=== PATIENT | male | born 1980 | race Caucasian/White ===

== ENCOUNTER 2018-01-17 09:36 | Emergency (ER) | payer MEDICARE, MEDICAID ==
[2018-01-17 09:45] VITALS: BP 116/76
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
== END 2018-01-17 10:25 | disposition home or self-care (01) ==
LOC: UCEAST 09:36
DX: R31.9 Hematuria, unspecified (principal); F98.8 Other specified behavioral and emotional disorders with onset usually occurring in childhood and adolescence; Z88.0 Allergy status to penicillin; Z88.8 Allergy status to other drugs, medicaments and biological substances
CPT/HCPCS: 81003; 87077; 87086; 99212; G0463

== ENCOUNTER 2019-06-20 22:00 | Emergency (ER) | payer MEDICARE, MEDICAID ==
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
--- OUTSIDE RECORDS SUMMARY | 2019-06-20 22:39 | XMS REPORT | Continuity of Care Document ---
:1980 Author Organization 0001 [facility] Address [address] [place] [address] Phone Care Team Providers Name Role Phone RUSSELL DOWELL MD Unavailable Unavailable Allergies, Adverse Reactions, Alerts Substance Reaction Status lamotrigine Vomiting Active Penicillins Other Active Medications Medication Instructions Dosage Effective Dates Status Comments (start - stop) Differin 0.1 % apply by topical - Active topical gel route every day a thin layer to chest and shoulder nightly with moisturizer Zeasorb AF 2 % apply by topical 0.00 - Active topical powder route 2 times every day to the affected area(s) in the morning and evening Claritin 10 mg take 1 tablet by 10 MG - Active tablet oral route every day triamcinolone apply by topical 0.00 - Active acetonide 0.5 % route 2 times topical cream every day a thin layer to the affected area(s) Metamucil 0.4 gram Take 1 capsule by - Active capsule oral route daily ammonium lactate 12 Apply topically to - Active % topical cream rash areas every day following a warm shower or applying warm water compresses x 5 min fluticasone inhale 2 spray by 2 spray - Active propionate 50 Intranasal route mcg/actuation nasal every day in each spray,suspension nostril Zeasorb topical Apply powder daily - Active powder to groin area and in socks and shoes. Colace Clear 50 mg take 1 capsule by 50 MG - Active capsule oral route every day at bedtime as needed Eye Drops (with apply two drops in - Active refresh eye povidone) 0.05 both eyes every 6 gtts every 6 %-0.1 %-1 %-1 % hours as needed hours prn for itching itchy eyes Murine Ear Wax 1 drop in to each - Active Removal System 6.5 ear at bedtime % drops once a week (sundays) Abilify 10 mg take 1 tablet by - Active tablet oral route every day at HS guaifenesin 100 take 5 milliliter - Active mg/5 mL oral liquid by oral route every 4 hours as needed for cough Vitamin C 500 mg Chew 1 tablet by - Active chewable tablet mouth daily Micro-Guard 2 % apply to two - Active topical powder affected areasonce a day. Cipro 500 mg tablet Take 1 pill by - Active mouth twice a day for a week Retin-A 0.025 % apply pea size - Active topical cream amount mixed with moisturizer at affected area(s) at bedtime Colace 50 mg take 1 capsule - Active capsule (50MG) by oral route every day at bedtime as needed valproic acid (as take 2.5 mg - Active sodium salt) 250 (125mg) by mouth mg/5 mL oral every morning solution Lotrisone 1 %-0.05 Apply to affected - Active % Topical Cream area 4 times daily as needed for rash to groin and arm pits Listerine 10ml by mouth - Active Mint flavor Antiseptic twice daily swish Mouthwash and spit valproic acid 250 take 1 capsule - Active mg Cap (250MG) by oral route at bedtime Triple Antibiotic apply as directed - Active 3.5 mg-400 to affected areas unit-5,000 unit/g Ointment Patanol 0.1 % Eye 1 gtt inaffected - Active Drops eye BID prn Abilify 20 mg Tab Take one tablet by - Active mouth daily ibuprofen 200 mg TAKE 2 TABLETS - Active Tab EVERY 8 HOURS NEEDED Pepto-Bismol 262 Take three - Active mg/15 mL Oral Susp teaspoons every four hours Differin 0.1 % apply by topical - No Longer topical gel route every day a Active thin layer to chest and shoulder nightly with moisturizer Problems Condition Effective Dates (start - Clinical Status stop) Acute otitis externa of both ears, unspecified type Encounter for Medicare annual wellness exam Body mass index (BMI) 32.0-32.9, - adult Fall, initial encounter Rib pain on right side Acute UTI Procedure and treatment not - carried out, unspecified reason Encounter for immunization - Impulse control disorder Mild mental retardation Encounter for preventive care Elevated glucose level Bipolar affective disorder, remission status unspecified Body mass index (BMI) 33.0-33.9, - adult Encounter for hearing evaluation Encounter for immunization - Diarrhea, unspecified type Encntr for f/u exam aft trtmt for - cond oth than malig neoplm Diarrhea, unspecified type Sexually transmitted disease exposure HIV exposure Risk For Fall - Encounter for Medicare annual wellness exam Lightheadedness Rash Rash of neck Rash Encounter for Medicare annual wellness exam Moderate mental retardation Bipolar affective disorder, remission status unspecified Impulse control disorder Sebaceous cyst Skin pustule Abrasion Lipoma of neck Skin pustule Janina rash of groin Epistaxis Routine medical exam Bipolar affective disorder, mixed, unspec Moderate mental retardation Impulse control disorder Anal ulceration Contact dermatitis Routine Medical Exam - Moderate mental retardation Bipolar disorder Impulse control disorder Rash, oth nonspecific skin eruption Rash, oth nonspecific skin eruption Incontinence of urine Rash of entire body Allergic rhinitis Cerumen impaction Impacted cerumen - Moderate mental retardation Bipolar disorder Manic-depressive psychosis NOS - Conjunctivitis, acute NOS - Influenza Vaccine - Pain in joint, shoulder - Shoulder pain, right Pain in joint, shoulder - Hemorrhoids Hemorrhoids - Moderate Intellectual Disabilities Bipolar affective disorder, mixed, unspec ADD (attention deficit disorder with hyperactivity Bipolar affective disorder, mixed, - unspec Disorder, attention deficit - w/hyperactivity Sprain of third finger of right hand Sprain/strain, hand NOS - Enuresis Incontinence, urinary NOS - Abrasion of scrotum Contusion of scrotum Incontinence, urinary NOS - Abrasion, trunk w/o infection - Contusion, genital organs - Eczema of face Allergic dermatitis Retardation, mental, moderate Disorder, attention deficit w/hyperactivity Bipolar affective disorder, mixed, unspec Warts, other specified viral - Primary focal hyperhidrosis - Bipolar I disorder, mixed, unspec - Conjunctivitis, acute NOS Acute Rotator cuff injury Acute Dermatitis NOS Acute Hematuria Acute Hemorrhage, rectal/anal Acute Hemorrhoids NOS, w/o complications Acute Cystitis NOS Acute Cystitis NOS Acute Conjunctivitis, acute NOS Acute Disorder, attention deficit w/o Asymptomatic hyperactivity Retardation, mental, mild Chronic Disorder, attention deficit w/o Chronic hyperactivity Disorder, attention deficit w/o Chronic hyperactivity Retardation, mental, mild Chronic Warts, other specified viral Chronic Retardation, mental, mild Chronic Retardation, mental, moderate Fair control Disorder, attention deficit w/o Fair control hyperactivity Gastroenteritis/colitis, Good control non-infect NEC Disorder, attention deficit w/o Good control hyperactivity Bipolar affective disorder, mixed, Good control unspec Urethritis NOS No evidence of disease Disorder, attention deficit Pending workup w/hyperactivity Elevation, transaminase/LDH levels Pending workup Dermatophytosis, nail Poorly controlled Pain in joint, shoulder Resolved Injury NOS, shoulder/upper arm Resolved Routine Medical Exam Routine Retardation, mental, mild Stable Retardation, mental, mild Stable Bipolar I disorder, mixed, unspec Stable Procedures Procedure Date Procedure Unknown Results Test Name Date and Time Measure Units Reference Range Abnormal Flag Status Comments Unknown Encounters Encounter Practice Location Reason(s) Diagnoses Date Provider Providers Description For Visit Copied on Encounter 2019 - [facility] Primary MAGALYS LOOKSIMA, Care [place] RUSSELL. [address] [place], [place], [place] [address]. [place], tel:[phone], [address] tel:[phone] 2019 - [facility] Primary MATTHEW LOOKSIMA, Care [place] SUJEY. 54 33-57 0 [place], [place], [place], [address]. [place] tel:[phone] [place], [address], [place] tel:[phone] 0001 - [facility] Primary Chico-0 RISING S Inc, Care [place] 2-202 SUJEY. 54 33-57 0 [place], [place], [facility]. [place] tel:[phone] [place], [address], [place] tel:[phone] 0001 - [facility] Primary Nov-1 DOWELL S Inc, Care [place] 8-201 RUSSELL. 54 33-57 9 [facility], [place], [place], [place] [address]. [place], tel:[phone], [place] [address] tel:[phone] 0001 - [facility] Primary Oct-2 DOWELL S Inc, Care [place] 2-201 RUSSELL. 54 33-57 9 [facility], [place], [place], [place] [address]. [place], tel:[phone], [place] [address] tel:[phone] 0001 - S Primary Oct-0 DOWELL S Inc, Care [place] 3-201 RUSSELL. 54 33-57 9 [facility], [place], [place], [place] [address]. [place], tel:[phone], [place] [address] tel:[phone] 0001 - S Primary Sep-2 DOWELL S Inc, Care [place] 4-201 RUSSELL. 54 33-57 9 [facility], [place], [place], [place] [address]. [place], tel:[phone], [place] [address] tel:[phone] 0001 - S Primary Sep-1 BILL S Inc, Care [place] 3-201 [place]. 33-[address] [place] [address], [place], [facility]. [place] tel:[phone] [place], [address], [place] tel:[phone] 0001 - S Primary Acute otitis Aug-2 RISING [facility] Inc, Care [place] externa of both SUJEY. 54 33-57 ears, 9 [facility] unspecified type [place], [place], [place], [address]. [place] tel:[phone] [place], [address], [place] tel:[phone] 0001 - [facility] Primary Aug-2 DOWELL S Inc, Care [place] 1 RUSSELL. 54 33-57 9 [facility], Street, [place], [place], [place] [address]. [place], tel:[phone], [place] [address] tel:[phone] 0001 - [facility] Primary Oct-1 DOWELL S Inc, Care [place] RUSSELL. 54 33-57 9 [facility], [place], [place], [place] [address]. [place], tel:[phone], [place] [address] tel:[phone] 0001 - S Primary Encounter for Jerry-0 DOWELL [employer] Inc, Care [place] Medicare annual RUSSELL. 54 33-57 wellness 9 [facility], Street, index (BMI) [place], [place], [place] 32.0-32.9, adult [address]. [place], tel:[phone], [place] [address] tel:[phone] 0001 - S Primary Feb-2 BILL [employer] Inc, Care [place] 8 [place]. 33-57 9 54 [place], [place], [place], [address]. [place] tel:[phone] [place], [address], [place] tel:[phone] 0001 - S Primary Fall, initial Feb-2 BILL [facility] Inc, Care [place] encounterRib 5- [place]. 33-57 pain on right 9 54 [facility] side [place], [place], [place], [address]. [place] tel:[phone] [place], [address], [place] tel:[phone] 0001 - S Primary Acute UTI Nov-2 DOWELL S Inc, Care [place] 7- RUSSELL. 54 33-57 8 [facility], [place], [place], [place] [address]. [place], tel:[phone], [place] [address] tel:[phone] 0001 - [facility] Primary Procedure and Jan- [facility], Care [place] treatment not RUSSELL. 54 33-57 carried out, 8 [facility] unspecified [facility], [place], [place], [place] [address]. [place], tel:[phone], [place] [address] tel:[phone] 0001 - [facility] Primary Encounter for Dec- [facility] Inc, Care [place] immunization SUJEY. 54 33-57 8 [place], [place], [place] [address]. [place] tel:[phone] [place], [address], [place] tel:[phone] 0001 - [facility] Primary Sep- [facility] Inc, Care [place] 2 RUSSELL. 54 33-57 8 [facility], [place], [place], [place] [address]. [place], tel:[phone], [place] [address] tel:[phone] 0001 - [facility] Primary Impulse control May-0 [facility] Inc, Care [place] disorderMild RUSSELL. 54 33-57 mental 8 [facility] retardationEncou [facility], [place], er for [place], [place], [place] preventive [address]. [place], careElevated tel:[phone], [place] glucose [address] tel:[phone] levelBipolar [id number] affective disorder, remission status unspecifiedBody mass index (BMI) 33.0-33.9, adult 0001 - [facility] Primary Encounter for Jun- DOWELL [facility] Inc, Care [place] hearing 7 RUSSELL. 54 33-57 evaluation 8 [facility], [place], [place], [place] [address]. [place], tel:[phone], [place] [address] tel:[phone] 0001 - [facility] Primary Encounter for Dec-2 DOWELL S Inc, Care [place] immunization 0-201 RUSSELL. 54 33-57 7 [facility], [place], [place], [place] [address]. [place], tel:[phone], [place] [address] tel:[phone] 0001 - [facility] Primary Diarrhea, Oct-0 DOWELL S Inc, Care [place] unspecified 3-201 RUSSELL. 54 33-57 typeEncntr for [address] [place] [address] f/u exam aft [facility], [place], trtmt for cond [place], [place], [place] [address]. [place], neoplm tel:[phone], [place] [address] tel:[phone] 0001 - [facility] Primary Diarrhea, Sep-2 [facility], Care [place] unspecified type 6-201 RUSSELL. 54 33-57 7 [facility], [place], [place], [place] [address]. [place], tel:[phone], [place] [address] tel:[phone] 0001 - [facility] Primary Aug-2 RISING S Inc, Care [place] 3-201 SUJEY. 54 7 [place], [place], [place], [address]. [place] tel:[phone] [place], [address], tel:[phone] 0001 - S Primary Sexually May-0 MAG S Inc, Care [place] transmitted 2-201 DANAY. 260 33-57 disease 7 [facility] Mary Jane Garcia, [facility], exposure [place], [place] [address]. [place], tel:[phone], [place] [address] tel:[phone] 0001 - [facility] Primary Risk For Apr-1 DOWELL S Inc, Care [place] FallEncounter 1-201 RUSSELL. 54 33-57 for Medicare [address] [place] [address] annual wellness [facility], Street, exam [place], [place] [address]. [place], tel:[phone], [place] [address] tel:[phone] 0001 - S Primary Lightheadedness Fe- DOWELL S Inc, Care [place] RUSSELL. 54 33-57 7 [facility], [place], [place], [place] [address]. [place], tel:[phone], [place] [address] tel:[phone] 0001 - [facility] Primary Rash Dec-2 [facility] Inc, Care [place] 0 SUJEY. 54 33-57 6 [place], [place], [place], [address]. [place] tel:[phone] [place], [address], [place] tel:[phone] 0001 - [facility] Primary Rash of neck [facility] Inc, Care [place] 0 SUJEY. 54 33-57 6 [place], [place], [place], [address]. [place] tel:[phone] [place], [address], [place] tel:[phone] 0001 - [facility] Primary Rash July- CALLEO S Inc, Care [place] ELLA. [address]57 6 [place], [place], [place], [address]. [place] tel:[phone] [place], [address], [place] tel:[phone] 0001 - S Primary Encounter for Jun- DOWELL S Inc, Care [place] Medicare annual RUSSELL. 54 33-57 wellness 6 [facility] examModerate [facility], [place], [place], [place] retardationBipol [address]. [place], ar affective tel:[phone], disorder, [address] tel:[phone] remission status [id number] unspecifiedImpul se control disorder 0001 - [facility] Primary Dec-0 DOWELL S Inc, Care [place] RUSSELL. 54 33-57 5 [facility], [place], [place] [address]. [place], tel:[phone], [address] tel:[phone] 0001 - [facility] Primary Sebaceous Aug- DOWELL S Inc, Care Baxter [facility], [facility] Campus[facility] 3-201 RUSSELL. 54 33-57 pustuleAbrasion 5 [facility], [place], [place] [address]. [place], tel:[phone], [place] [address] tel:[phone] 0001 - [facility] Primary Lipoma of Sep- WENDY ANNIE. S Inc, Care [place] neckSkin 0-201 [facility]SP[facility] 33-57 33-57 pustuleCandida 5 [facility], [place] rash of groin [facility], [place], [place] [address]. [place], tel:[phone], [place] [address] tel:[phone] 0001 - [facility] Primary Epistaxis May-0 GLOSENGER S Inc, Care [place] 6-201 RIK. 59 33-57 5 [facility], [place], [place], [place] [address]. [place], tel:[phone], [place] [address] tel:[phone] 0001 - [facility] Primary Routine medical Feb-2 [facility] Inc, Care [place] examBipolar 5-201 RUSSELL. 54 33-57 affective 5 [facility] disorder, mixed, [facility], [place], unspecModerate [place], [place], [place] mental [address]. [place], retardationImpul tel:[phone], [facility] control [address] tel:[phone] 0001 - [facility] Primary Anal ulceration Nov- DOWELL S Inc, Care [place] 3-201 RUSSELL. 54 33-57 4 [facility], [place], [place], [place] [address]. [place], tel:[phone], [place] [address] tel:[phone] 0001 - [facility] Primary Contact Dec- SCHECTER S Inc, Care [place] dermatitis 5-201 EMELYN. 3357 [address] [place], [place], [place] [address]. [place], tel:[phone], [place] [address] tel:[phone] 0001 - [facility] Primary Routine Medical Feb-0 DOWELL S Inc, Care [place] ExamModerate 7-201 RUSSELL. 54 33-57 mental 4 [facility], [place], [place], [place], [place] disorderImpulse [address]. [place], control tel:[phone], [place] disorderRoutine [address] tel:[phone] Medical Exam [phone] 0001 - [facility] Primary Nov-2 DOWELL [facility] Inc, Care [place] 6-201 RUSSELL. 54 33-57 3 [facility], Street, [place], [place], [place] [address]. [place], tel:[phone], [place] [address] tel:[phone] 0001 - [facility] Primary Nov-0 CANDOR S Inc, Care [place] 4-201 NURSE. . 33-57 3 [place], [address], [place] tel:[phone] 0001 - [facility] Primary Rash, oth Sep-2 SCHECTER S Inc, Care [place] nonspecific skin 7-201 EMELYN. 33-57 eruption [address] [place], [place], [place] [address]. [place], tel:[phone], [place] [address] tel:[phone] 0001 - [facility] Primary Rash, oth Aug-1 SCHECTER [facility] Inc, Care [place] nonspecific skin 5-201 EMELYN. 33-57 eruption [address] [place], [place], [place] [address]. [place], tel:[phone], [place] [address] tel:[phone] 0001 - S Primary Incontinence of Aug-0 SCHECTER Referring [facility] Inc, Care [place] urineRash of 8-201 EMELYN. Provider: 33-57 entire body 3 [address] [place]ELYN [place], [place], [place], [address] [place] [address]. [place], [place], tel:[phone] [facility] [address], [place] [address] [place], tel:+60 [place] [address]. [phone] tel:[phone] [facility] - [facility] Primary Allergic Jerry-2 SCHECTER S Inc, Care [place] rhinitis EMELYN. 33-57 3 [address] [place], [place], [place] [address]. [place], tel:[phone], [place] [address] tel:[phone] 0001 - [facility] Primary Jerry-2 SCHECTER [facility] Inc, Care [place] EMELYN. 33-57 3 [address] [place], [place], [place] [address]. [place], tel:[phone], [place] [address] tel:[phone] [facility] - [facility] Primary Cerumen Mar-2 [facility], Care Baxter impactionImpacte EMELYN. 33-57 d cerumen 3 [address] [place], [place], [place] [address]. [place], tel:[phone], [place] [address] tel:[phone] 2019 - [facility] Primary Moderate mental [place]-3 DOWELL [facility], Care Baxter retardationBipol RUSSELL. 54 33-57 ar 3 [facility] disorderManic-de [facility], [place], [place], [place], [place] psychosis NOS [address]. [place], tel:[phone], [place] [address] tel:[phone] [place] [address] Primary Conjunctivitis, Nov-0 [facility], Care [place] acute PRIYANK. 54 Provider: 33-[address] [facility], [facility] s, acute NOS [place], [place], [facility], [address]. 54 [facility] tel:[phone] , [place], [address] [place], [address], [facility], [address]. tel:[phone] tel:[phone] 2019 - [facility] Primary Influenza Sep-2 [facility] Inc, Care Baxter VaccinePain in RUSSELL. 54 33-57 joint, 2 [facility] shoulderPain in [facility], Street, joint, shoulder [place], [place], [place] [address]. [place], tel:[phone], [place] [address] tel:[phone] 0001 - S Primary Shoulder pain, Sep-2 [facility], Care Baxter rightPain in 0-201 RUSSELL. 54 33-57 joint, shoulder 2 [facility], [place], [place], [place] [address]. [place], tel:[phone], [place] [address] tel:[phone] 0001 - S Primary HemorrhoidsHemor Jerry-1 DOWELL S Inc, Care Baxter rhoids 1-201 RUSSELL. 54 33-57 2 [facility], [place], [place], [place] [address]. [place], tel:[phone], [place] [address] tel:[phone] 0001 - [facility] Primary Feb-2 DOWELL S Inc, Care Baxter 3-201 RUSSELL. 54 33-57 2 [facility], [place], [place], [place] [address]. [place], tel:[phone], [place] [address] tel:[phone] 0001 - S Primary Moderate Feb-0 DOWELL S Inc, Care Baxter Intellectual 2-201 RUSSELL. 54 33-57 DisabilitiesBipo 2 [facility] lar affective [facility], [place], disorder, mixed, [place], [place], [place] unspecADD [address]. [place], (attention tel:[phone], [place] deficit disorder [address] tel:[phone] hyperactivityBip olar affective disorder, mixed, unspecDisorder, attention deficit w/hyperactivity 0001 - S Primary Sprain of third Sep-2 [facility], Care [place] finger of right 3-201 RIK. 59 Provider: 33-57 Valley handSprain/strai [address] , RIK Brewer n, hand NOS [facility], [facility], [place], [place], [address] [place] [address]. [facility], [place], tel:[phone] [place], [address], [place] [address] [place], [address]. tel:+60 tel:[phone] 0001 - S Primary EnuresisIncontin Curtis-2 GUTIERREZ Referring S Inc, Care [place] ence, urinary 8201 PRIYANK. 54 Provider: 33-57 NOSAbrasion of 1 [facility] scrotumContusion [place], [place], [facility] [address]. 54 [facility] scrotumIncontine tel:[phone] , [place], [place], urinary [address] [place], [address], [place], [address]. tel:+60 trunk w/o tel:[phone] infectionContusi 1928220 on, genital organs 0001 - S Primary Injury NOS, May-0 DOWELL S Inc, Care [place] shoulder/upper RUSSELL. 54 33-57 arm 1 [facility], [place], [place], [place] [address]. [place], tel:[phone], [place] [address] tel:[phone] 0001 - S Primary Rotator cuff Apr-2 DOWELL S Inc, Care [place] injury RUSSELL. 54 33-57 1 [facility], [place], [place], [place] [address]. [place], tel:[phone], [place] [address] tel:[phone] 0001 - S Primary Eczema of face Apr-1 GLOSENGER S Inc, Care Baxter RIK. 59 33-57 1 [facility], [place], [place], [place] [address]. [place], tel:[phone], [place] [address] tel:[phone] 0001 - S Primary Allergic Apr-0 GLOSENGER Referring S Inc, Care [place] dermatitis RIK. 59 Provider: 33-[address] [facility], [facility], [facility], [place], [place], 59 Count Includes [facility] [address]. [facility], [place], [place], tel:[phone] [place], [address], [place] [address] [place], [address]. tel:+60 tel:[phone] 0001 - [facility] Primary Retardation, May- DOWELL S Inc, Care [place] mental, 8-201 RUSSELL. 54 33-57 moderateDisorder 1 [facility] , attention [facility], Street, [place], [place], [place] w/hyperactivityB [address]. [place], [place] affective tel:[phone], [place] disorder, mixed, [address] tel:+[phone] unspec [phone] 0001 - [facility] Primary Dec-2 [facility] Inc, Care [place] 6-201 NURSE. . 33-57 0 [place], [address], tel:[phone] 0001 - [facility] Primary May- Tomorrow S Inc, Care [place] 7-201 RUSSELL. 54 33-57 0 [facility], [place], [place], [place] [address]. [place], tel:[phone], [place] [address] tel:[phone] 0001 - [facility] Primary Disorder, [place]-2 Kira [employer] Inc, Care [place] attention 0-201 RUSSELL. 54 33-57 deficit 0 [facility] w/hyperactivityR [facility], Street, etardation, [place], [place], [facility], moderate [address]. [place], tel:[phone], [address] tel:[phone] 0001 - [facility] Primary Aug- Kira [employer] Inc, Care [place] 7-200 RUSSELL. 54 33-57 9 [facility], [place], [place], [place] [address]. [place], tel:[phone], [place] [address] tel:[phone] 0001 - S Primary Dermatophytosis, Jerry-0 Kira [employer] Inc, Care [place] nail 2-200 RUSSELL. 54 33-57 9 [facility], [place], [place], [place] [address]. [place], tel:[phone], [place] [address] tel:[phone] 0001 - S Primary Retardation, Apr-2 DOWELL S Inc, Care [place] mental, mild 1-200 RUSSELL. 54 33-57 9 [facility], [place], [place], [place] [address]. [place], [place], tel:[phone], [place] [address] tel:[phone] 0001 - S Primary Retardation, Oct- NEHA S Inc, Care [place] mental, 9-200 LESLIE. 42 W 33-57 mildDisorder, 8 [facility] attention [facility], Street, deficit w/o [place], [place], [place] hyperactivity[place] [address]. [place], [place], order, attention tel:[phone], deficit w/o [address] tel:[phone] [phone] 0001 - S Primary Elevation, Dec- NEHA S Inc, Care [place] transaminase/LDH 2-200 LESLIE. 42 W 33-57 levels 8 [facility], [place], [place], [place] [address]. [place], [place], tel:[phone], [place] [address] tel:[phone] 0001 - S Primary Gastroenteritis/ Jerry- DOWELL S Inc, Care [place] colitis, 3-200 RUSSELL. 54 33-57 non-infect NEC 8 [facility], [place], [place], [place] [address]. [place], tel:[phone], [address] tel:[phone] 2019 - S Primary Dermatitis NOS July- DOWELL S Inc, Care [place] 4-200 RUSSELL. 54 33-57 8 [facility], [place], [place], [place] [address]. [place], [place], tel:[phone], [place] [address] tel:[phone] 0001 - S Primary Warts, other Feb-0 S Inc, Care specified 1200 33-57 [place] viralPrimary 8 [facility], [place], [address], tel:[phone] 0001 - [facility] Primary Retardation, Dec-1 DOWELL S Inc, Care [place] mental, 9-200 RUSSELL. 54 33-57 mildDisorder, 7 [address] , [place] attention [facility], Street, deficit w/o [place], [place], [place] hyperactivityUre [address]. [place], [place], thritis NOS tel:[phone], [place] [address] tel: [phone] 0001 - S Primary Hematuria Nov-0 GUTIERREZ Referring S Inc, Care [place] 9-200 PRIYANK. 54 Provider: [address] [place], [place] [address]PRIYANK [place], [place], [facility], [address]. 54 [facility] tel:[phone] , [place], [address] [place], [address], [facility], [address]. tel: tel:[phone] 2019 - S Primary Nov-0 [facility] Inc, Care [place] 9-[address] . [address] [place] [address], [place], [address], tel: [phone] 2019 - [facility] Primary Disorder, Sep-1 [facility] Inc, Care [place] attention 7-200 RUSSELL. 54 33-57 deficit w/o 7 [facility] hyperactivityBip [facility], [place], olar affective [place], [place], [place] disorder, mixed, [address]. [place], [place], un[place] tel:[phone], [place] [address] tel: [phone] 2019 - [facility] Primary Hemorrhage, Apr-0 DOWELL Referring S Inc, Care [place] rectal/anal 4-200 RUSSELL. 54 Provider: [address] [place], [place] [address]RUSSELL [facility], [place], [place], [address] [place] [address]. [facility], [place], [place], tel:[phone] [place], [address], [place] [address] [place], [address]. tel: tel:[phone] 0001 - [facility] Primary Hemorrhoids NOS, Mar-2 DOWELL S Inc, Care [place] w/o 3-200 RUSSELL. 54 33-[address] [facility], [facility], [place], [place], [place] [address]. [place], [place], tel:[phone], [place] [address] tel:[phone] 0001 - [facility] Primary Cystitis NOS Dec- DOWELL S Inc, Care [place] 2-200 RUSSELL. 54 33-57 6 [facility], [place], [place], [place] [address]. [place], [place], tel:[phone], [place] [address] tel:[phone] 0001 - S Primary Cystitis NOS [facility]. Referring [facility] Inc, Care [place] 8-200 [facility] 119 Provider: 3357 6 [facility] [place], [place], [address] [place] [address]. [facility], [place], [place], tel:[phone] [address], [place] [address] [place], tel:[phone] [place], [phone]. [phone] tel:[phone] 0001 - S Primary Oct- CANDOR S Inc, Care [place] 7-200 NURSE. . 3357 6 [place], [address], [place] tel:[phone] 0001 - [facility] Primary Disorder, May-0 NEHA S Inc, Care [place] attention 9-200 LESLIE. 42 W 33-57 deficit w/o 6 [facility], [place], [place], [place], [facility], mild [address]. [place], [place], tel:[phone], [place] [address] tel:[phone] 0001 - [facility] Primary Conjunctivitis, [place]-2 NEHA S Inc, Care [place] acute NOS 5-200 LESLIE. 42 W 33-57 6 [facility], [place], [place], [place] [address]. [place], [place], tel:[phone], [place] [address] tel:[phone] 0001 - S Primary Bipolar I [place]- NEHA S Inc, Care [place] disorder, mixed, 0-200 LESLIE. 42 W 33-[address] [facility], [place] disorder, mixed, [facility], Street, unspecWarts, [place], [place], [place] other specified [address]. [place], [place], viralRetardation tel:[phone], [place] , mental, mild [address] tel:[phone] 0001 - [facility] Primary NEHA [facility] Inc, Care [place] 1-200 LESLIE. 42 W 33-57 5 [address] , [facility], Street, [place], [place], [place] [address]. [place], [place], tel:[phone], [place] [address] tel:[phone] Family History Family Member Diagnosis Age At Onset Unknown Immunizations Vaccine Date Status Comments Influenza, injectable, administered Source: Other Provider quadrivalent, preservative free, split virus Influenza, injectable, administered Source: New Immunization quadrivalent, preservative Record free, split virus TDAP (Boostrix or Adacel) administered Source: New Immunization Record Influenza, injectable, administered Source: New Immunization quadrivalent, preservative Record free, split virus 9783-3323 Influenza, injectable, administered Source: Other Provider quadrivalent, preservative free, split virus 3 years or older, Fluarix Quad 7711-5930 Fluarix, Flulaval, or Flluzone administered Source: Other Provider Quad Fluarix Quadrivalent Syringe administered Source: New Immunization Record Fluarix administered Source: New Immunization Record Fluvirin Multi Dose Vial administered Source: New Immunization Record Td (adult) administered Source: New Immunization Record flu (split) (3 yrs or older) administered Source: New Immunization 0.5 mL IM with preservatives Record flu (split) (3 yrs or older) administered Source: New Immunization 0.5 mL IM without preservatives Record flu (split) (3 yrs or older) administered Source: New Immunization 0.5 mL IM with preservatives Record flu (split) (3 yrs or older) administered Source: New Immunization Record flu (split) (3 yrs or older) cancelled Source: New Immunization 0.5 mL IM without preservatives Record Payers Payer name Insurance type Covered libertarian ID Authorization(s) Medicare [id number] Medicare Mc [id number] Medicaid [id number] Medicare A [id number] Medicare B [id number] Medicaid [facility] Julio [id number] Medicare A [id number] Medicare B [id number] Medicaid [facility] Julio [id number] Medicare A [id number] Medicare B [id number] Medicaid [facility] Julio [id number] Social History Type Description Quantity Date Captured Comments Alcohol Use Details Unknown Caffeine Use Details Unknown Tobacco Use Status Unknown Smoking Status Unknown Vital Signs Date / Height Weight BMI Pulse Blood Temperature Respiratory Body Head BMI Time: Rate Pressure Rate Surface Circumference percentile Area Unknown Chief Complaint And Reason For Visit No information Reason For Referral Reason For Referral Unknown Plan Of Care Date Type Action Status Referral Ordered: ordered Xray Rib Bilateral with 1 View Chest Referral Ordered: ordered Audiology (related to Encounter for hearing evaluation) Referral Ordered: ordered Referrals: Audiology. Location: [facility]. Evaluate and treat Appointment date/timeframe: 4 Months Referral Ordered: ordered Referrals: Dermatology. Location: [facility]. Evaluate and treat Appointment date/timeframe: 1 Month Referral Ordered: ordered . Allergy/Immun. Consult and treat. Appointment RUSSELL BOB Date Type Problem Goal Intervention Status Start Date Unknown History Of Present Illness Encounter Date Complaint History Of Present Illness No information Functional Status Encounter Date Functional Assessment Cognitive Assessment Unknown Medications Administered Medication Instructions Dosage Effective Dates (start - stop) Status Comments Drug Treatment Unknown Instructions Date Instruction Additional Information use the Ciprodex drops to bilateral Related to Acute otitis externa of ears for 7 days Risks and benefits of both ears, unspecified type new medication discussed.If no improvement please contact office for follow up Can use Ibuprofen/Tylenol as needed for Related to Rib pain on right side pain relief.Advised not to lift any heavy objects above 20 pounds until pain subsides. Recommended to get x-ray to r/o rib fracture. Rapid HIV testing negative in office Related to HIV exposure today, pt verbalized understanding I will contact you with test results Related to Sexually transmitted when available. disease exposure Continue using the triamcinolone cream Related to Rash 2xday to affected areas. Will treat with premetherin cream as Related to Rash of neck directed. Try to avoid itching areas directly. After treatment with permetherin cream then use triamcinolone cream 2xday to help with inflammation. If rash persists after treatment, then follow up is needed for referrel to dermatology. use permetherin cream as directed.try Related to Rash to avoid itching areas as it will make things worseinformation printed out and given to patient/care home leader.follow up if not improved in 1-2 weeks. Risks and benefits of new medication discussed. Patient verbalized understanding Prescription for nystatin topical Related to Janina rash of groin powder sent to your pharmacy. Apply twice daily to affected area. Follow up with your primary care provider in 1 week or sooner if symptoms become worse. Continue applying cool compresses to Related to Lipoma of neck area. Tylenol or ibuprofen for pain. Follow up with your primary care provider in 1 week for re-check or sooner if symptoms become worse. Apply triple antibiotic ointment to Related to Skin pustule affected area. Apply warm compresses for 15-20 minutes 3-4 times daily. Follow up with your primary care provider in 1 week or sooner if symptoms become worse. fluticasone x 1 month Related to Epistaxis Clobetasol as prescribed - as needed Related to Contact dermatitis for rash. Wear protective gloves at work - avoid irritation to site.
--- OUTSIDE RECORDS SUMMARY | 2019-06-20 22:39 | XMS REPORT | Continuity of Care Document ---
:1980 [address] [place] [address] Address [address] [place] [address] Phone Care Team Providers Name Role Phone RUSSELL DOWELL MD Unavailable Unavailable Allergies, Adverse Reactions, Alerts Substance Reaction Status lamotrigine Vomiting Active Penicillins Other Active Medications Medication Instructions Dosage Effective Status Comments Dates (start - stop) Zeasorb AF 2 % apply by topical 0.00 - Active topical powder route 2 times every day to the affected area(s) in the morning and evening Tamiflu 75 mg take 1 capsule by 75 MG - Active capsule oral route every day prazosin 1 mg take 1 capsule by - Active capsule oral route every day at bedtime CeraVe lotion Apply to affected - Active area 1-2 times daily ketoconazole 2 % apply by topical Not Available - Active topical cream route 2 times every day to the affected area(s) Mucinex 1,200 mg take 1 tablet by 1 tablet - Active tablet, extended oral route 2 release times every day Lotrisone 1 %-0.05 Apply to affected - Active % topical cream area 4 times daily as needed for rash to groin and arm pits Micro-Guard 2 % apply to two - Active topical powder affected areasonce a day. Differin 0.1 % apply by topical - Active topical gel route every day a thin layer to chest and shoulder nightly with moisturizer Claritin 10 mg take 1 tablet by 10 MG - Active tablet oral route every day triamcinolone apply by topical 0.00 - Active acetonide 0.5 % route 2 times topical cream every day a thin layer to the affected area(s) Metamucil 0.4 gram Take 1 capsule by - Active capsule oral route daily ammonium lactate Apply topically - Active 12 % topical cream to rash areas every day following a warm shower or applying warm water compresses x 5 min fluticasone inhale 2 spray by 2 spray - Active propionate 50 Intranasal route mcg/actuation every day in each nasal nostril spray,suspension Colace Clear 50 mg take 1 capsule by 50 MG - Active capsule oral route every day at bedtime as needed Eye Drops (with apply two drops - Active refresh eye povidone) 0.05 in both eyes gtts every 6 %-0.1 %-1 %-1 % every 6 hours as hours prn needed for itchy eyes itching Murine Ear Wax 1 drop in to each - Active Removal System 6.5 ear at bedtime % drops once a week (sundays) Abilify 10 mg take 1 tablet by - Active tablet oral route every day at HS guaifenesin 100 take 5 milliliter - Active mg/5 mL oral by oral route liquid every 4 hours as needed for cough Vitamin C 500 mg Chew 1 tablet by - Active chewable tablet mouth daily Cipro 500 mg Take 1 pill by - Active tablet mouth twice a day for a week [...] mouth mg/5 mL oral every morning solution Listerine 10ml by mouth - Active Mint flavor Antiseptic twice daily swish Mouthwash and spit valproic acid 250 take 1 capsule - Active mg Cap (250MG) by oral route at bedtime Triple Antibiotic apply as directed - Active 3.5 mg-400 to affected unit-5,000 unit/g areas Ointment Patanol 0.1 % Eye 1 gtt inaffected - Active Drops eye BID prn Abilify 20 mg Tab Take one tablet - Active by mouth daily ibuprofen 200 mg TAKE 2 TABLETS - Active Tab EVERY 8 HOURS NEEDED Pepto-Bismol 262 Take three - Active mg/15 mL Oral Susp teaspoons every four hours prednisone 10 mg take 4 tablet by 40 MG - No Longer tablet oral route every Active day for 4 days, take 3 tablets for 3 days, take 2 tablets for 2 days, take 1 tablet for 1 day adapalene 0.1 % apply by topical - No Longer topical gel route every day Active a thin layer to the affected areas (chest and shoulder) before bedtime Zeasorb AF 2 % apply by topical 0.00 - No Longer topical powder route 2 times Active every day to the affected area(s) in the morning and evening Zeasorb AF 2 % apply by topical 0.00 - No Longer topical powder route 2 times Active every day to the affected area(s) in the morning and evening Lotrisone 1 %-0.05 Apply to affected - No Longer % topical cream area 4 times Active daily as needed for rash to groin and arm pits Zeasorb AF 2 % apply by topical 0.00 - No Longer topical powder route 2 times Active every day to the affected area(s) in the morning and evening Zeasorb AF 2 % apply by topical 0.00 - No Longer topical powder route 2 times Active every day to the affected area(s) in the morning and evening Zeasorb topical Apply powder - No Longer powder daily to groin Active area and in socks and shoes. Differin 0.1 % apply by topical - No Longer topical gel route every day Active a thin layer to chest and shoulder nightly with moisturizer Micro-Guard 2 % apply to two - No Longer topical powder affected Active areasonce a day. Lotrisone 1 %-0.05 Apply to affected - No Longer % Topical Cream area 4 times Active daily as needed for rash to groin and arm pits Problems Condition Effective Dates (start - Clinical Status stop) Upper respiratory tract infection, unspecified type Acute otitis externa of both ears, unspecified [...] Providers Description For Visit Copied on Encounter 0001 - [facility] Primary May- MAGALYS [facility] 8 RUSSELL. 33-57 0 [facility], [place], [place], [place] [facility]. [place], tel:[phone], [place] [address] tel:[phone] 0001 - [facility] Primary Mar-1 DOWELL [facility] [place] 0-202 RUSSELL. 54 33-57 0 Main [facility], [place], [place], [place] [address]. [place], tel:[phone], [place] [address] tel:[phone] 0001 - [facility] Primary Mar-0 BILL [facility] [place] 9202 [place]. 33-57 0 [address] [place], [place], [place], [address]. [place] tel:[phone] [place], [address], [place] tel:[phone] 0001 - [facility] Primary Upper Mar-0 BILL [facility], [facility] [place] respiratory 6 [place]. 33-57 tract infection, 0 54 Main [facility] unspecified type [place], [place], [place], [address]. [place] tel:[phone] [place], [place], [address] [place], [place] [address], [place] tel:[phone] 0001 - [facility] Primary Mar-0 RISING [facility], [facility] [place] 4202 SUJEY. 54 33-57 0 Main [place], [place], [place], [address]. [place] tel:[phone] [place], [facility] [address], [place] tel:[phone] 0001 - [facility] Primary Feb-2 RISING [facility], [facility] [place] 6 SUJEY. 54 33-57 0 Main [place], [place], [place], [address]. [place] tel:[phone] [place], [address], [place] tel:[phone] 0001 - [facility] Primary Chico-2 DOWELL [facility], [facility] [place] 8-202 RUSSELL. 54 33-57 0 Main [facility], [place], [place], [place] [address]. [place], tel:[phone], [address] tel:[phone] 0001 - [facility] Primary Chico-1 RISING [facility], [facility] [place] 0-202 SUJEY. 54 33-57 0 Main [facility] [place], [place], [address]. [place] tel:[phone] [place], [address], [place] tel:[phone] 0001 - [facility] Primary Chico-0 RISING S Inc, [facility] [place] 2-202 SUJEY. 54 33-57 0 [place], [place], [place], [facility]. [place] tel:[phone] [place], [address], [place] tel:[phone] 0001 - [facility] Primary Nov-1 DOWELL S Inc, [facility] [place] 8-201 RUSSELL. 54 33-57 9 [facility], [place], [place], [place] [address]. [place], tel:[phone], [place] [address] tel:[phone] 0001 - [facility] Primary Oct-2 DOWELL S Inc, [facility] [place] 2-201 RUSSELL. 54 33-57 9 [facility], [place], [place], [place] [address]. [place], tel:[phone], [place] [address] tel:[phone] 0001 - S Primary Oct-0 DOWELL S Inc, [facility] [place] 3-201 RUSSELL. 54 33-57 9 [facility], [place], [place], [place] [address]. [place], tel:[phone], [place] [address] tel:[phone] 0001 - S Primary Sep-2 ODWELL S Inc, [facility] [place] 4-201 RUSSELL. 54 33-57 9 [facility], [place], [place], [place] [address]. [place], tel:[phone], [place] [address] tel:[phone] 0001 - S Primary Sep-1 BILL S Inc, [facility] [place] 3-201 [place]. 33-[address] [place] [address], [place], [facility]. [place] tel:[phone] [place], [address], [place] tel:[phone] 0001 - S Primary Acute otitis Aug-2 RISING [facility] [place] externa of both SUJEY. 54 33-57 ears, 9 [facility] unspecified type [place], [place], [place], [address]. [place] tel:[phone] [place], [address], [place] tel:[phone] 0001 - [facility] Primary Aug-2 DOWELL S Inc, [facility] [place] 1 RUSSELL. 54 33-57 9 [facility], Street, [place], [place], [place] [address]. [place], tel:[phone], [place] [address] tel:[phone] 0001 - [facility] Primary Oct-1 DOWELL S Inc, [facility] [place] RUSSELL. 54 33-57 9 [facility], [place], [place], [place] [address]. [place], [place], tel:[phone], [place] [address] tel:[phone] 0001 - S Primary Encounter for Jerry-0 DOWELL [employer], [facility] [place] Medicare annual RUSSELL. 54 33-57 wellness 9 [facility] examBody [facility], Street, index (BMI) [place], [place], [place] 32.0-32.9, adult [address]. [place], tel:[phone], [place] [address] tel:[phone] 0001 - S Primary Feb-2 BILL [employer], [facility] [place] 8 [place]. 33-57 9 54 [place], [place], [place], [address]. [place] tel:[phone] [place], [address], [place] tel:[phone] 0001 - S Primary Fall, initial Feb-2 BILL [facility], [facility] [place] encounterRib 5- [place]. 33-57 pain on right 9 54 [facility] side [place], [place], [place], [address]. [place] tel:[phone] [place], [address], [place] tel:[phone] 0001 - S Primary Acute UTI Nov-2 DOWELL S Inc, [facility] [place] 7- RUSSELL. 54 33-57 8 [facility], [place], [place], [place] [address]. [place], tel:[phone], [place] [address] tel:[phone] 0001 - [facility] Primary Procedure and Jan- [facility] Inc, [facility] [place] treatment not RUSSELL. 54 33-57 carried out, 8 [facility] unspecified [facility], [place], [place], [place] [address]. [place], tel:[phone], [place] [address] tel:[phone] 0001 - [facility] Primary Encounter for Dec- [facility] [place] immunization SUJEY. 54 33-57 8 [place], [place], [place] [address]. [place] tel:[phone] [place], [address], [place] tel:[phone] 0001 - [facility] Primary Sep- [facility] Inc, [facility] [place] 2 RUSSELL. 54 33-57 8 [facility], [place], [place], [place] [address]. [place], tel:[phone], [place] [address] tel:[phone] 0001 - [facility] Primary Impulse control May-0 [facility] Inc, [facility] [place] disorderMild RUSSELL. 54 33-57 mental 8 [facility] retardationEncou [facility], [place], er for [place], [place], [place] preventive [address]. [place], careElevated tel:[phone], [place] glucose [address] tel:+[phone] levelBipolar [id number] affective disorder, remission status unspecifiedBody mass index (BMI) 33.0-33.9, adult 0001 - [facility] Primary Encounter for Jun- DOWELL [facility] [place] hearing 7 RUSSELL. 54 33-57 evaluation 8 [facility], [place], [place], [place] [address]. [place], tel:[phone], [place] [address] tel:[phone] 0001 - [facility] Primary Encounter for Dec-2 DOWELL S Inc, [facility] [place] immunization 0-201 RUSSELL. 54 33-57 7 [facility], [place], [place], [place] [address]. [place], tel:[phone], [place] [address] tel:[phone] 0001 - [facility] Primary Diarrhea, Oct-0 DOWELL S Inc, [facility] [place] unspecified 3-201 RUSSELL. 54 33-57 typeEncntr for [address] [place] [address] f/u exam aft [facility], [place], trtmt for cond [place], [place], [place] [address]. [place], [place], neoplm tel:[phone], [place] [address] tel:[phone] 0001 - [facility] Primary Diarrhea, Sep-2 [facility] Inc, [facility] [place] unspecified type 6-201 RUSSELL. 54 33-57 7 [facility], [place], [place], [place] [address]. [place], tel:[phone], [place] [address] tel:[phone] 0001 - [facility] Primary Aug-2 RISING S Inc, [facility] [place] 3-201 SUJEY. 54 7 [place], [place], [address]. [place] tel:[phone] [place], [address], tel:[phone] 0001 - S Primary Sexually May-0 MAG S Inc, [facility] [place] transmitted 2-201 DANAY. 260 33-57 disease 7 [facility] Mary Jane Garcia, [facility], exposure [place], [place], [place] [address]. [place], tel:[phone], [place] [address] tel:[phone] 0001 - [facility] Primary Risk For Apr-1 DOWELL S Inc, [facility] [place] FallEncounter 1-201 RUSSELL. 54 33-57 for Medicare [address] [place] [address] annual wellness [facility], Street, exam [place], [place] [address]. [place], tel:[phone], [place] [address] tel:[phone] 0001 - S Primary Lightheadedness Fe- DOWELL S Inc, [facility] [place] RUSSELL. 54 33-57 7 [facility], [place], [place], [place] [address]. [place], [place], tel:[phone], [place] [address] tel:[phone] 0001 - [facility] Primary Rash Dec-2 [facility] Inc, [facility] [place] 0 SUJEY. 54 33-57 6 [place], [place], [address]. [place] tel:[phone] [place], [address], [place] tel:[phone] 0001 - [facility] Primary Rash of neck [facility] Inc, [facility] [place] 0 SUJEY. 54 33-57 6 [place], [place], [address]. [place] tel:[phone] [place], [address], [place] tel:[phone] 0001 - [facility] Primary Rash July- CALLEO S Inc, [facility] [place] ELLA. 116 N 33-57 6 [place], [place], [place], [address]. [place] tel:[phone] [place], [address], [place] tel:[phone] 0001 - S Primary Encounter for Jun- DOWELL S Inc, [facility] [place] Medicare annual RUSSELL. 54 33-57 wellness 6 [facility] examModerate [facility], [place], [place], [place] retardationBipol [address]. [place], ar affective tel:[phone], disorder, [address] tel:[phone] remission status [id number] unspecifiedImpul se control disorder 0001 - [facility] Primary Dec-0 DOWELL S Inc, [facility] [place] RUSSELL. 54 33-57 5 [facility], [place], [place], [place] [address]. [place], tel:[phone], [address] tel:[phone] 0001 - [facility] Primary Sebaceous Aug- DOWELL S Inc, [facility] [place] [facility] 3-201 RUSSELL. 54 33-57 pustuleAbrasion 5 [facility], [place], [place], [place] [address]. [place], tel:[phone], [place] [address] tel:[phone] 0001 - [facility] Primary Lipoma of Sep- WENDY ANNIE. S Inc, [facility] [place] neckSkin 0-201 UHSPNC 33-57 33-57 pustuleCandida 5 [facility] rash of groin [facility], [place], [place], [place] [address]. [place], tel:[phone], [place] [address] tel:[phone] 0001 - [facility] Primary Epistaxis May-0 GLOSENGER S Inc, [facility] [place] 6-201 RIK. 59 33-57 5 [facility], [place], [place], [place] [address]. [place], tel:[phone], [place] [address] tel:[phone] 0001 - [facility] Primary Routine medical Feb-2 [facility] Inc, [facility] [place] examBipolar 5-201 RUSSELL. 54 33-57 affective 5 [facility] disorder, mixed, [facility], [place], unspecModerate [place], [place], [place] mental [address]. [place], [place], retardationImpul tel:[phone], [facility] control [address] tel:[phone] disorder [phone] 0001 - [facility] Primary Anal ulceration Nov- DOWELL S Inc, [facility] [place] 3-201 RUSSELL. 54 33-57 4 [facility], [place], [place], [place] [address]. [place], tel:[phone], [place] [address] tel:[phone] 0001 - [facility] Primary Contact Dec- SCHECTER S Inc, [facility] [place] dermatitis 5-201 EMELYN. 3357 [address] [facility] [address] [place], [place], [place] [address]. [place], tel:[phone], [place] [address] tel:[phone] 0001 - [facility] Primary Routine Medical Feb-0 DOWELL S Inc, [facility] [place] ExamModerate 7-201 RUSSELL. 54 33-57 mental 4 [facility], [place], [place], [place], [place] disorderImpulse [address]. [place], [place], control tel:[phone], [place] disorderRoutine [address] tel:[phone] Medical Exam [phone] 0001 - [facility] Primary Nov-2 DOWELL [facility], [facility] [place] 6-201 RUSSELL. 54 33-57 3 [facility], Street, [place], [place], [place] [address]. [place], [place], tel:[phone], [place] [address] tel:[phone] 0001 - [facility] Primary Nov-0 CANDOR S Inc, [facility] [place] 4-201 NURSE. . 33-57 3 [place], [address], [place] tel:[phone] 0001 - [facility] Primary Rash, oth Sep-2 SCHECTER S Inc, [facility] [place] nonspecific skin 7-201 EMELYN. 33-57 eruption [address] [place], [place], [place] [address]. [place], [place], tel:[phone], [place] [address] tel:[phone] 0001 - [facility] Primary Rash, oth Aug-1 SCHECTER [facility], [facility] [place] nonspecific skin 5-201 EMELYN. 33-57 eruption [address] [place], [place], [place] [address]. [place], [place], tel:[phone], [place] [address] tel:[phone] 0001 - S Primary Incontinence of Aug-0 SCHECTER Referring [facility], [facility] [place] urineRash of 8-201 EMELYN. Provider: 33-57 entire body 3 [address] EMELYN [place], [place], [place], [address] [place] [address]. [place], [place], tel:[phone] [facility] [address], [place] [address] [place], tel:+60 [place] [address]. [phone] tel:[phone] [facility] - [facility] Primary Allergic Jerry-2 SCHECTER S Inc, [facility] [place] rhinitis EMELYN. 33-57 3 [address] [place], [place], [place] [address]. [place], tel:[phone], [place] [address] tel:[phone] 0001 - [facility] Primary Jerry-2 SCHECTER [facility] Inc, Care [place] EMELYN. 33-57 3 [address] [place], [place], [place] [address]. [place], tel:[phone], [place] [address] tel:[phone] [facility] - [facility] Primary Cerumen Mar-2 [facility] [place] impactionImpacte EMELYN. 33-57 d cerumen 3 [address] [place], [place], [place] [address]. [place], tel:[phone], [place] [address] tel:[phone] 2019 - [facility] Primary Moderate mental Chico-3 DOWELL [facility], Care [place] retardationBipol RUSSELL. 54 33-57 ar 3 [facility] disorderManic-de [facility], [place], [place], [place], [place] psychosis NOS [address]. [place], tel:[phone], [place] [address] tel:[phone] [place] [address] Primary Conjunctivitis, Nov-0 [facility]Z [facility] [place] acute PRIYANK. 54 Provider: 33-57 NOSConjunctiviti [address] [facility], [facility] s, acute NOS [place], [place], [facility], [address]. 54 [facility] tel:[phone] , [place], [address] [place], [address], [facility], [address]. tel:[phone] tel:[phone] 2019 - [facility] Primary Influenza Sep-2 [facility] Inc, Care [place] VaccinePain in RUSSELL. 54 33-57 joint, 2 [facility] shoulderPain in [facility], Street, joint, shoulder [place], [place], [place] [address]. [place], tel:[phone], [place] [address] tel:[phone] 0001 - S Primary Shoulder pain, Sep-2 [facility] Inc, Care [place] rightPain in 0-201 RUSSELL. 54 33-57 joint, shoulder 2 [facility], [place], [place], [place] [address]. [place], tel:[phone], [place] [address] tel:[phone] 0001 - S Primary HemorrhoidsHemor Jerry-1 DOWELL S Inc, [facility] [place] rhoids 1-201 RUSSELL. 54 33-57 2 [facility], [place], [place], [place] [address]. [place], tel:[phone], [place] [address] tel:[phone] 0001 - [facility] Primary Feb-2 DOWELL S Inc, Care [place] 3-201 RUSSELL. 54 33-57 2 [facility], [place], [place], [place] [address]. [place], tel:[phone], [place] [address] tel:[phone] 0001 - S Primary Moderate Feb-0 DOWELL S Inc, [facility] [place] Intellectual 2-201 RUSSELL. 54 33-57 DisabilitiesBipo 2 [facility] lar affective [facility], [place], disorder, mixed, [place], [place], [place] unspecADD [address]. [place], [place], (attention tel:[phone], [place] deficit disorder [address] tel:[phone] with [phone] hyperactivityBip olar affective disorder, mixed, unspecDisorder, attention deficit w/hyperactivity 0001 - S Primary Sprain of third Sep-2 [facility]ENGER [facility], Care [place] finger of right 3-201 RIK. 59 Provider: 33-57 [place] handSprain/strai [address] , RIK Brewer n, hand NOS [facility], [facility], [place], [place], [address] [place] [address]. [facility], [place], tel:[phone] [place], [address], [place] [address] [place], [address]. tel:+60 tel:[phone] 0001 - S Primary EnuresisIncontin Curtis-2 GUTIERREZ Referring S Inc, Care [place] ence, urinary 8201 PRIYANK. 54 Provider: 33-57 NOSAbrasion of 1 [facility] scrotumContusion [place], [place], [facility] [address]. 54 [facility] scrotumIncontine tel:[phone] , [place], [place], nce, urinary [address] [place], [address], [place], [address]. tel:+60 trunk w/o tel:[phone] infectionContusi [id number] on, genital organs 0001 - S Primary Injury NOS, May-0 DOWELL S Inc, Care [place] shoulder/upper RUSSELL. 54 33-57 arm 1 [facility], [place], [place], [place] [address]. [place], tel:[phone], [place] [address] tel:[phone] 0001 - S Primary Rotator cuff Apr-2 DOWELL S Inc, Care [place] injury RUSSELL. 54 33-57 1 [facility], [place], [place], [place] [address]. [place], [place], tel:[phone], [place] [address] tel:[phone] 0001 - S Primary Eczema of face Apr-1 GLOSENGER S Inc, Care [place] RIK. 59 33-57 1 [facility], [place], [place], [place] [address]. [place], tel:[phone], [place] [address] tel:[phone] 0001 - S Primary Allergic Apr-0 GLOSENGER Referring S Inc, Care [place] dermatitis RIK. 59 Provider: 33-[address] [facility], [facility], [facility], [place], [place], 59 [facility] [address]. [facility], [place], tel:[phone] [place], [address], [place] [address] [place], [address]. tel:+60 tel:[phone] 0001 - [facility] Primary Retardation, May- DOWELL S Inc, Care [place] mental, 8-201 RUSSELL. 54 33-57 moderateDisorder 1 [facility] , attention [facility], Street, [place], [place], [place] w/hyperactivityB [address]. [place], [place], ipolar affective tel:[phone], [place] disorder, mixed, [address] tel:[phone] unspec [phone] 0001 - [facility] Primary Dec-2 [facility], Care [place] 6-201 NURSE. . 33-57 0 [place], [address], tel:[phone] 0001 - [facility] Primary May- [employer] Inc, Care [place] 7-201 RUSSELL. 54 33-57 0 [facility], [place], [place], [place] [address]. [place], tel:[phone], [place] [address] tel:[phone] 0001 - [facility] Primary Disorder, [place]-2 [employer] Inc, Care [place] attention 0-201 RUSSELL. 54 33-57 deficit 0 [facility] w/hyperactivityR [facility], Street, etardation, [place], [place], [facility], moderate [address]. [place], tel:[phone], [address] tel:[phone] 0001 - [facility] Primary Aug- [employer] Inc, Care [place] 7-200 RUSSELL. 54 33-57 9 [facility] [facility], [place], [place], [place] [address]. [place], [place], tel:[phone], [place] [address] tel:[phone] 0001 - S Primary Dermatophytosis, Jerry-0 [employer], Care [place] nail 2-200 RUSSELL. 54 33-57 9 [facility], [place], [place], [place] [address]. [place], [place], tel:[phone], [place] [address] tel:[phone] 0001 - S Primary Retardation, Apr-2 DOWELL [employer] Inc, Care [place] mental, mild 1-200 RUSSELL. 54 33-57 9 [facility], [place], [place], [place] [address]. [place], [place], tel:[phone], [place] [address] tel:[phone] 0001 - S Primary Retardation, Oct- NEHA S Inc, Care [place] mental, 9-200 LESLIE. 42 W 33-57 mildDisorder, 8 [facility] attention [facility], Street, deficit w/o [place], [place], [place] hyperactivity[place] [address]. [place], [place], order, attention tel:[phone], deficit w/o [address] tel:[phone] 0001 - S Primary Elevation, Dec- NEHA S Inc, Care [place] transaminase/LDH 2-200 LESLIE. 42 W 33-57 levels 8 [facility], [place], [place], [place] [address]. [place], [place], tel:[phone], [place] [address] tel:[phone] 0001 - S Primary Gastroenteritis/ Jerry- DOWELL [employer] Inc, Care [place] colitis, 3-200 RUSSELL. 54 33-57 non-infect NEC 8 [facility], [place], [place], [place] [address]. [place], tel:[phone], [address] tel:[phone] 2019 - S Primary Dermatitis NOS July- DOWELL S Inc, Care [place] 4-200 RUSSELL. 54 33-57 8 [facility], [place], [place] [address]. [place], tel:[phone], [place] [address] tel:[phone] 0001 - S Primary Warts, other Feb-0 S Inc, Care specified 1200 33-57 [place] viralPrimary 8 [facility], [place], [address], tel:[phone] 0001 - [facility] Primary Retardation, Dec-1 DOWELL S Inc, Care [place] mental, 9-200 RUSSELL. 54 33-57 mildDisorder, 7 [address] , [place] attention [facility], Street, deficit w/o [place], [place], [place] hyperactivityUre [address]. [place], [place], thritis NOS tel:[phone], [place] [address] tel: [phone] 0001 - S Primary Hematuria Nov-0 GUTIERREZ Referring S Inc, Care [place] 9-200 PRIYANK. 54 Provider: [address] [place], [place] [address]PRIYANK [place], [place], [facility], [address]. 54 [facility] tel:[phone] , [place], [address] [place], [address], [facility], [address]. tel: tel:[phone] 2019 - S Primary Nov-0 [facility], Care [place] 9-[address]URSE[address] . [address] [place] [address], [place], [address], tel: [phone] 2019 - [facility] Primary Disorder, Sep-1 [facility] Inc, Care [place] attention 7-200 RUSSELL. 54 33-57 deficit w/o 7 [facility] hyperactivityBip [facility], [place], olar affective [place], [place], [place] disorder, mixed, [address]. [place], [place], unspec tel:[phone], [place] [address] tel: [phone] 2019 - [facility] Primary Hemorrhage, Apr-0 DOWELL Referring S Inc, Care [place] rectal/anal 4-200 RUSSELL. 54 Provider: [address] [place], [place] [address]RUSSELL [facility], [place], [address] [place] [address]. [facility], [place], [place], tel:[phone] [place], [address], [place] [address] [place], [address]. tel: tel:[phone] 0001 - [facility] Primary Hemorrhoids NOS, Mar-2 DOWELL S Inc, Care [place] w/o 3-200 RUSSELL. 54 33-57 complications [address] [facility], [facility], [place], [place], [place] [address]. [place], [place], tel:[phone], [place] [address] tel:[phone] 0001 - [facility] Primary Cystitis NOS Dec- DOWELL S Inc, Care [place] 2-200 RUSSELL. 54 33-57 6 [facility], [place], [place], [place] [address]. [place], [place], tel:[phone], [place] [address] tel:[phone] 0001 - S Primary Cystitis NOS [facility]. Referring [facility] Inc, Care [place] 8-200 [facility] PC 119 Provider: 3357 6 [facility] [place], [place], [address] [place] [address]. [facility], [place], [place], tel:[phone] [place] [address], [place] [address] [place], tel:[phone] [place], [address]. [phone] tel:[phone] 0001 - S Primary Oct- CANDOR S Inc, Care [place] 7-200 NURSE. . 3357 [address] [place], [address], [place] tel:[phone] 0001 - [facility] Primary Disorder, May-0 NEHA S Inc, Care [place] attention 9-200 LESLIE. 42 W 33-57 deficit w/o 6 [facility], [place], [place], [place], [facility], mild [address]. [place], [place], tel:[phone], [place] [address] tel:[phone] 0001 - [facility] Primary Conjunctivitis, [place]-2 [employer] Inc, Care [place] acute NOS 5-200 LESLIE. 42 W 33-57 6 [facility], [place], [place], [place] [address]. [place], tel:[phone], [place] [address] tel:[phone] 0001 - S Primary Bipolar I [place]- NEHA [employer] Inc, Care [place] disorder, mixed, 0-200 LESLIE. 42 W 33-57 unspecBipolar I [address] [facility], [place] disorder, mixed, [facility], Street, unspecWarts, [place], [place], [place] other specified [address]. [place], [place], viralRetardation tel:[phone], [place] , mental, mild [address] tel:[phone] 0001 - [facility] Primary NEHA [facility] Inc, Care [place] 1-200 LESLIE. 42 W 33-57 [address] , [facility], Street, [place], [place], [place] [address]. [place], [place], tel:[phone], [place] [address] tel:[phone] Family History Family Member Diagnosis Age At Onset Unknown Immunizations Vaccine Date Status Comments Influenza, injectable, administered Source: Other Provider quadrivalent, preservative free, split virus Influenza, injectable, administered Source: New Immunization quadrivalent, preservative Record free, split virus TDAP (Boostrix or Adacel) administered Source: New Immunization Record Influenza, injectable, administered Source: New Immunization quadrivalent, preservative Record free, split virus 0816-0170 Influenza, injectable, administered Source: Other Provider quadrivalent, preservative free, split virus 3 years or older, Fluarix Quad 4620-9826 Fluarix, Flulaval, or Flluzone administered Source: Other [...] Insurance type Covered libertarian ID Authorization(s) Medicare [id number] Medicare Mc [id number] Medicaid [id number] Medicare A [id number] Medicare B [id number] Medicaid [facility] [id number] Medicare A [id number] Medicare B [id number] Medicaid [facility] [id number] Medicare A [id number] Medicare B [id number] Medicaid [facility] Julio [id number] Social History Type Description Quantity Date Captured [...] evaluation) Referral Ordered: ordered Referrals: Audiology. Location: [facility]. Evaluate and treat Appointment date/timeframe: 4 Months Referral Ordered: ordered Referrals: Dermatology. [place] [facility]. Evaluate and treat Appointment date/timeframe: 1 Month Referral Ordered: ordered . Allergy/Immun. Consult and treat. Appointment RUSSELL BOB Date Type Problem Goal Intervention Status Start Date Unknown History Of Present Illness Encounter Date Complaint History Of Present Illness No information Functional Status Encounter Date Functional Assessment Cognitive Assessment Unknown Medications Administered Medication Instructions Dosage Effective Dates Status Comments (start - stop) adapalene 0.1 % apply by topical - No Longer topical gel route every day a Active thin layer to the affected areas (chest and shoulder) before bedtime Lotrisone 1 %-0.05 Apply to affected - No Longer % topical cream area 4 times daily Active as needed for rash to groin and arm pits Instructions Date Instruction Additional Information Mucinex as directed. Risks and Related to Upper respiratory tract benefits of new medication discussed. infection, unspecified type Maintain adequate hydration and rest. Saline nasal spray for nasal congestion and nasal symptoms. May use salt water gargles, OTC throat spray, or lozenges for sore throat. Should use Tylenol/Motrin for fever or body aches. Warm moist air may help with relief of irritation and cough. Call or go to emergency department/walk in for worsening symptoms such as fever >101.5, shortness of breath, difficulty breathing, or worsening of current symptoms. use the Ciprodex drops to bilateral Related [...] to get x-ray to r/o rib fracture. I will contact you with test results Related to Sexually transmitted when available. disease exposure Rapid HIV testing negative in office Related to HIV exposure today, pt verbalized understanding Continue using the triamcinolone cream Related to [...]
[2019-06-20 22:51] LABS: ABS Basophils 0.1 10^3/ul (0-0.2); ABS Lymphocytes 2.4 10^3/ul (1.0-4.8); ABS Monocytes 0.8 10^3/ul (0-0.8); ABS Neutrophils 5.8 10^3/ul (1.5-7.7); Eosinophil % 0.5 %; Hematocrit 49 % (42-52); Hemoglobin 17.2 g/dL (14.0-18.0); Lymphocyte % 26.2 %; Mean Corpuscular HGB Conc 35 g/dL (31-36); Mean Corpuscular Hemoglobin 30 pg (27-31); Mean Corpuscular Volume 86 fL (80-94); Mean Platelet Volume 8.7 fL (7.4-10.4); Nucleated Red Blood Cells % 0.1; Platelet Count 216 10^3/uL (150-450); Red Blood Count 5.71 10^6 /uL (4.18-5.48); Red Cell Distribution Width 13 % (10-15); White Blood Count 9.1 10^3/uL (3.5-10.8)
[2019-06-20 22:58] LABS: Activated Partial Thrombo Time 34.3 seconds (26.0-38.0); INR 1.01 (0.82-1.09)
[2019-06-20 23:09] LABS: Albumin 4.2 g/dL (3.2-5.2); Albumin/Globulin Ratio 1.6 (1-3); BUN/Creatinine Ratio 13.4 (8-20); Calcium 9.2 mg/dL (8.6-10.3); EGFR African American 104.3 (>60); EGFR Non-African American 86.2 (>60); Globulin 2.7 g/dL (2-4); Total Bilirubin 0.4 mg/dL (0.2-1.0); Total Protein 6.9 g/dL (6.4-8.9)
[2019-06-20 23:55] VITALS: BP 126/85
[2019-06-21 00:04] LABS: Potassium 4.2 mmol/L (3.5-5.0)
== END 2019-06-20 23:55 | disposition home or self-care (01) ==
LOC: ED 22:00
DX: K62.5 Hemorrhage of anus and rectum (principal); K62.89 Other specified diseases of anus and rectum; K21.9 Gastro-esophageal reflux disease without esophagitis; Z88.0 Allergy status to penicillin; F90.9 Attention-deficit hyperactivity disorder, unspecified type; Z79.899 Other long term (current) drug therapy
CPT/HCPCS: 36415; 80053; 85025; 85610; 85730; 86850; 86900; 86901; 99282